=== PATIENT | male | born 1955 | race Caucasian/White ===

== ENCOUNTER → 2017-10-11 | Outpatient (CLI) | payer OTHER ==
[2017-10-11] MEDS: IOHEXOL 300 MG/ML 100ML VIAL. IV (10:25)
== END | disposition home or self-care (01) ==
LOC: KCIC CT 09:51
DX: H47.331 Pseudopapilledema of optic disc, right eye (principal); I10 Essential (primary) hypertension; E11.9 Type 2 diabetes mellitus without complications
CPT/HCPCS: 70470; Q9967